=== PATIENT | female | born 1955 | race African-American/Black ===

== ENCOUNTER 2017-02-18 14:28 | Emergency (ER) | payer MEDICAID ==
[~2017-02-18] VITALS: Ht 160 cm; Wt 63.0 kg
[2017-02-18 14:31] VITALS: BP 114/61
[2017-02-18] MEDS ORDERED: FAMOTIDINE 20MG TABLET PO ONE (15:15)
[2017-02-18] MEDS ORDERED: DIPHENHYDRAMINE 50MG CAPSULE PO ONE (15:15)
== END 2017-02-18 15:41 | disposition home or self-care (01) ==
LOC: ER 15:39
DX: G24.09 Other drug induced dystonia (principal); F20.9 Schizophrenia, unspecified; I10 Essential (primary) hypertension; G62.9 Polyneuropathy, unspecified; Z85.3 Personal history of malignant neoplasm of breast; Z90.12 Acquired absence of left breast and nipple; Z88.8 Allergy status to other drugs, medicaments and biological substances
CPT/HCPCS: 99283; Q0163